=== PATIENT | female | born 1995 | race Hispanic/Latino ===

== ENCOUNTER 2020-10-01 21:02 | Emergency (ER) | payer OTHER ==
[~2020-10-01] VITALS: Ht 157.5 cm; Wt 96.3 kg
[2020-10-01] MEDS ORDERED: FAMO1TAB25 PO (21:07)
[2020-10-02] MEDS ORDERED: KETOROLAC 30 MG/ML 1ML VIAL IV ONE (00:40)
[2020-10-02 01:21] LABS: BASO # 0.1 10^3/uL (0.0-0.2); BASO % 0.5 % (0.0-1.0); EOS # 0.4 10^3/uL (0.0-0.5); EOS % 4.2 % (0.0-3.0); HEMATOCRIT 45.2 % (36.0-47.0); HEMOGLOBIN 14.7 g/dl (12.0-15.5); LYMPH # 3.6 10^3/uL (1.5-5.0); LYMPH % 35.7 % (24.0-44.0); MEAN CORPUSCULAR HEMOGLOBIN 27.2 pg (27.0-33.0); MEAN CORPUSCULAR HGB CONC 32.5 g/dl (32.0-36.5); MEAN CORPUSCULAR VOLUME 83.7 fl (80.0-96.0); MONO # 0.6 10^3/uL (0.0-0.8); NEUTROPHILS # 5.4 10^3/uL (1.5-8.5); NEUTROPHILS % 53.2 % (36.0-66.0); PLATELET COUNT, AUTOMATED 301 10^3/uL (150-450); WHITE BLOOD COUNT 10.1 10^3/uL (4.0-10.0)
[2020-10-02 01:44] LABS: CK-MB VALUE MASS < 1.0 NG/ML (<3.6); CPK CREATINE PHOSPHOKINASE 129 U/L (26-192); MB/CK RELATIVE INDEX 0.78 (< OR =4); TROPONIN I < 0.02 NG/ML (< 0.10)
--- NOTE | 2020-10-02 02:14 | REPVR ---
PROCEDURE INFORMATION: Exam: XR Chest Exam date and time: 10/02/2020 1:29 AM Age: 25 years old Clinical indication: Chest pain; Type not specified; Additional info: Mario, JOSHUA TECHNIQUE: Imaging protocol: XR of the chest Views: 2 views. COMPARISON: No relevant prior studies available. FINDINGS: Lungs: Unremarkable. No consolidation. Pleural spaces: Unremarkable. No pleural effusion. No pneumothorax. Heart/Mediastinum: Unremarkable. No cardiomegaly. Bones/joints: Unremarkable. IMPRESSION: No acute findings. Electronically signed by: Qamar Gómez On 10/02/2020 02:13:43 AM
[2020-10-02] MEDS ORDERED: NAPR-885 PO (02:24)
[2020-10-02 02:45] VITALS: BP 124/70
--- NOTE | 2020-10-02 19:55 | ECGEPIP ---
[facility] - ED Test Date: 2020-10-01 Pat Name: CRYS BRODERICK Department: Room: - Gender: Female R D Internship: : 1995 Requested By: GRZEGORZ Marley PA-C Order Number: [id number] Reading MD: Kylah Joy Measurements Intervals [place] Rate: 83 P: 65 MT: 158 QRS: 53 QRSD: 84 T: 22 QT: 360 QTc: 423 Interpretive Statements Normal sinus rhythm No prior Electronically Signed on 10-02-2020 19:54:58 EDT by Kylah Joy
== END 2020-10-02 02:48 | disposition home or self-care (01) ==
LOC: M ED 21:02
DX: R07.89 Other chest pain (principal); R06.02 Shortness of breath; M54.2 Cervicalgia
CPT/HCPCS: 71046; 80047; 82550; 82553; 84484; 84702; 85025; 85379; 93005; 96374; 99284; J1885

== ENCOUNTER 2021-02-20 11:34 | Emergency (ER) | payer OTHER ==
[~2021-02-20] VITALS: Ht 157.5 cm; Wt 100.0 kg
[~2021-02-20 11:34] MED LIST: FAMO10TA50 PO; NAPR-885 PO
[2021-02-20 12:54] LABS: BASO % 0.5 % (0.0-1.0); EOS # 0.2 10^3/uL (0.0-0.5); EOS % 2.6 % (0.0-3.0); HEMATOCRIT 41.8 % (36.0-47.0); HEMOGLOBIN 13.9 g/dl (12.0-15.5); LYMPH # 2.4 10^3/uL (1.5-5.0); LYMPH % 28.3 % (24.0-44.0); MEAN CORPUSCULAR HGB CONC 33.3 g/dl (32.0-36.5); MEAN CORPUSCULAR VOLUME 84.1 fl (80.0-96.0); MONO # 0.5 10^3/uL (0.0-0.8); NEUTROPHILS # 5.3 10^3/uL (1.5-8.5); NEUTROPHILS % 62.1 % (36.0-66.0); PLATELET COUNT, AUTOMATED 283 10^3/uL (150-450); RED BLOOD COUNT 4.97 10^6/uL (4.00-5.40); WHITE BLOOD COUNT 8.5 10^3/uL (4.0-10.0)
[2021-02-20 13:21] LABS: BLOOD UREA NITROGEN 7 MG/DL (7-18); CALCIUM LEVEL 8.8 MG/DL (8.5-10.1); CARBON DIOXIDE LEVEL 27 MEQ/L (21-32); CHLORIDE LEVEL 108 MEQ/L (98-107); CREATININE FOR GFR 0.68 MG/DL (0.55-1.30); GLOMERULAR FILTRATION RATE > 60.0 (>60); GLUCOSE, FASTING 77 MG/DL (70-100); POTASSIUM SERUM 4.1 MEQ/L (3.5-5.1); SODIUM LEVEL 141 MEQ/L (136-145)
--- NOTE | 2021-02-20 14:01 | REP ---
INDICATION: vag bleeding, pelvic cramping. COMPARISON: None. TECHNIQUE: Transabdominal and transvaginal scanning performed. FINDINGS: Uterine dimensions are 8.7 x 3.6 x 6.9 cm. Endometrial echo is 4 mm in AP dimension and centrally placed. The uterus is retroverted. The bladder measures 10.4 x 4.7 x 8.2cm. The right ovary has dimensions of 2.0 x 2.0 x 1.9 cm. It's Doppler flow is normal with a resistive index of 0.55. The left ovary dimensions are 2.9 x 2.0 x 2.0 cm. It's Doppler flow was normal with resistive index of 0.51. There is no adnexal mass identified. There is trace free fluid in the cul-de-sac. IMPRESSION: Negative pelvic ultrasound. Trace free fluid in the cul-de-sac is likely physiologic. <Electronically signed by Jerry Hood > 02/20/21 [id number]
[2021-02-20 15:51] VITALS: BP 130/67
== END 2021-02-20 16:15 | disposition home or self-care (01) ==
LOC: M ED 11:34
DX: Z32.02 Encounter for pregnancy test, result negative (principal); N93.9 Abnormal uterine and vaginal bleeding, unspecified